=== PATIENT | male | born 1980 | race Caucasian/White ===

== ENCOUNTER 2021-05-30 02:18 | Emergency (ER) | payer BC ==
[2021-05-30 02:44] LABS: RED BLOOD COUNT 5.03 M/UL (4.20-5.50); WHITE BLOOD COUNT 10.2 K/UL (4.5-11.0)
[2021-05-30 03:24] LABS: BUN/CREATININE RATIO 11 (0-10)
[2021-05-30] MEDS ORDERED: PROTONIX40 MG PO (05:40)
== END 2021-05-30 06:55 | disposition home or self-care (01) ==
LOC: ER1 02:18
PROVIDERS: Physician Assistant
DX: R07.89 Other chest pain (principal); R11.0 Nausea; R10.13 Epigastric pain
CPT/HCPCS: 71045; 80053; 82550; 82553; 83690; 83874; 84484; 85025; 93005; 96374; 99285; C9113